=== PATIENT | male | born 1945 | race Caucasian/White ===

== ENCOUNTER → 2019-12-29 | Outpatient (CLI) | payer OTHER | LOC: SJCVC 16:46 | PROVIDERS: ATTEND Internal Medicine | DX: Z01.818 Encounter for other preprocedural examination (principal); R55 Syncope and collapse; R94.31 Abnormal electrocardiogram [ECG] [EKG]; E78.5 Hyperlipidemia, unspecified; R42 Dizziness and giddiness; I44.0 Atrioventricular block, first degree; I21.29 ST elevation (STEMI) myocardial infarction involving other sites; I45.10 Unspecified right bundle-branch block ==

== ENCOUNTER → 2020-01-06 | Outpatient (CLI) | payer OTHER | LOC: SJCVC 06:58 → SJCVCIMAG 06:58 | PROVIDERS: ATTEND Internal Medicine | DX: I35.1 Nonrheumatic aortic (valve) insufficiency (principal); I44.0 Atrioventricular block, first degree; I45.10 Unspecified right bundle-branch block; Z79.899 Other long term (current) drug therapy; Z87.891 Personal history of nicotine dependence ==

== ENCOUNTER → 2020-01-24 | Outpatient (CLI) | payer OTHER | LOC: SJCVC 11:00 | PROVIDERS: ATTEND Internal Medicine | DX: R42 Dizziness and giddiness (principal); R53.83 Other fatigue; M19.90 Unspecified osteoarthritis, unspecified site; Z87.891 Personal history of nicotine dependence; Z96.652 Presence of left artificial knee joint; Z79.82 Long term (current) use of aspirin; Z79.899 Other long term (current) drug therapy ==

== ENCOUNTER → 2020-04-19 | Outpatient (CLI) | payer OTHER | LOC: LAB 14:23 | PROVIDERS: ATTEND Internal Medicine | DX: Z01.812 Encounter for preprocedural laboratory examination (principal); Z20.828 Contact with and (suspected) exposure to other viral communicable diseases ==

== ENCOUNTER → 2020-04-24 | Outpatient (CLI) | payer OTHER ==
[~2020-04-24] MED LIST: ASA81BEC PO; BYSTOLIC10 MG PO; CITALOPRAM HBR40 MG PO; COZAAR 50 MG TA50 MG PO; FOLIC ACID1 MG PO; JANUVIA 50 MG T50 M1 PO; LANTUS100 UNIT/M SUBQ; LIPITOR40 MG PO; LOSARTAN POTAS100 MG PO; METFORMIN HCL500 M3 PO; POTASSIUM CHLO10 ME1 PO; PROTONIX 20 MG20 M1 PO; VITAMIN D21250 MC1 PO
--- NOTE | 2020-04-26 21:10 | SLE ---
[facility] [place] [address] POLYSOMNOGRAPHY STUDY Name: RENUKA SHARPE Room #: REG LUIS Ribeiro#: [id number] Admission: 04/24/20 Attend Phys: Esau Zuñiga MD Discharge: Date of : 47 Report #: [id number] THIS REPORT FOR: cc: Zander Matos MD, Scott R. MD Khan,Esau Mays MD ~ SLEEP STUDY ATTENDING PHYSICIAN: Dr. Bennie Thrasher. The patient is 74 years old who weighs 180 pounds with a BMI of 23. The patient's M[place] score was 1. The patient underwent sleep study performed at [facility]. This was a diagnostic study. During the night study, the patient spent 504 minutes in bed and slept for 259 minutes with a low sleep efficiency of 51%. Sleep latency was 30 minutes with a REM latency of 196 minutes. Sleep architecture showed increased stage 1 sleep, which was 47% of total sleep time, normal stage 2 sleep, absent N3 sleep and significantly reduced REM sleep, which was only 1.3% of total sleep time.EEG signal was poor and difficult to score stages. During the night of the study, the patient had 13 obstructive apneas and 1 central apnea and 29 hypopneas. The patient's AHI was 9.9 per hour. No significant AHI during REM sleep was observed due to very limited REM sleep. Supine AHI was 15 per hour. EKG monitoring revealed an average heart rate of 69 beats per minute. Occasional PVCs seen. PLMS were seen at an index of 63 per hour and 7 per hour caused EEG arousals. Nocturnal oximetry study revealed an average oxygen saturation of 92% with the lowest of 84%. 6.3 minutes were spent with oxygen saturation of less than 89%. Due to low AHI, the patient did not meet the split night criteria for CPAP initiation. IMPRESSION: 1. Mild obstructive sleep apnea at an AHI of 9.9 per hour. Supine AHI was 15.1 per hour. Significantly reduced REM sleep can underestimate the severity of sleep apnea. 2. Mild nocturnal hypoxia secondary to obstructive sleep apnea. 3. Severe PLMS at an index of 63 per hour and 7 per hour caused EEG arousals. 4. Reduce sleep efficiency resulting from sleep maintenance insomnia. RECOMMENDATIONS: [address] [address] POLYSOMNOGRAPHY STUDY Name: RENUKA SHARPE Tiffanie [id number] Admission: 04/24/20 Attend Phys: Esau Zuñiga MD Discharge: Date of : 47 Report #: [id number] 1. The patient did not meet the split night criteria for CPAP initiation due to low AHI. If the patient is clinically symptomatic or has comorbid conditions, then consider treatment of sleep apnea with either CPAP versus oral appliance. 2. Once the patient is optimally treated, then follow up in 4-6 weeks to assess compliance with treatment and to document clinical improvement. 3. Avoid DIRECTOR OF BANDS depressants. 4. Cautioned regarding driving until symptoms of sleep apnea resolve with above recommendation. 5. PLMS can be treated with dopaminergic agonist agents if the patient is clinically symptomatic. The patient should also be further evaluated for symptoms of restless legs during the day. 6. The patient's sleep efficiency was only 51% from sleep maintenance insomnia. If the patient has chronic insomnia, then it can be further evaluated and treated according to the etiology. <ELECTRONICALLY SIGNED> By: Esau Zuñiga MD 04/26/202109 19 30 Esau Zuñiga MD /nt
== END ==
LOC: SLEEPLAB
PROVIDERS: ATTEND Internal Medicine Critical Care Medicine
DX: G47.33 Obstructive sleep apnea (adult) (pediatric) (principal); G47.34 Idiopathic sleep related nonobstructive alveolar hypoventilation; G47.61 Periodic limb movement disorder; Z68.22 Body mass index [BMI] 22.0-22.9, adult

== ENCOUNTER 2020-05-05 13:23 | Inpatient (IN) | payer OTHER ==
[~2020-05-05] VITALS: Ht 188 cm; Wt 127.9 kg
[2020-05-05] VITALS (13 sets, daily range): BP systolic 105–169; BP diastolic 48–105
--- NOTE | ~2020-05-05 | EMS ---
[address] [address] EMS Patient Care Report Name: RENUKA SHARPE Room #: 170-10 ADM IN M.R.#: [id number] Admission: 05/05/20 Attend Phys: Skyler Kendrick MD Discharge: Date of : 47 Report #: [id number] THIS REPORT FOR: //name// Report Transmitted: 05/05/2020 15:38 EMS Care Summary [facility] MED-ACT Incident [id number] @ 05/05/2020 12:34 Incident Location [address] [place] [address] Patient RENUKA SHARPE Male, 74 Years 1945 Patient Address [address] [place] [address] Patient History Hypertension (HTN),Type 2 Diabetes, Patient Allergies No known allergies, Patient Medications Bystolic, Losartan, Citalopram, Metformin, Potassium, Chief Complaint He had 2 syncopal episodes Disposition Transported No Lights/[place] Reason Unconscious/Fainting Transported To [facility] Narrative [id number] arrives on scene to find E45 with pt contact. Pt and his fianc??? state pt has had 2 syncopal episodes today. They deny any trauma with them. Pt states he was a little dizzy right before the episodes but now feels completely fine and normal. Pt denies any complaints throughout entire EMS contact. Pt states [address] [address] EMS Patient Care Report Name: RENUKA SHARPE Room #: 170-10 ADM IN ..#: [id number] Admission: 05/05/20 Attend Phys: Skyler Kendrick MD Discharge: Date of : 47 Report #: [id number] before the syncopal episodes he had been feeling normal as well. Pt denies any episodes like this before. Pt denies any recent illness. Pt noted to be in 2nd degree type 2 block while on scene, he converted to a junctional rhythm in the 80s throughout most of the transport and then just before arrival at the ED is noted to go back into the 2nd degree block. Pt denies feeling any different throughout any of the rhythm changes. Pt denies any CP or SOB. Pt noted to be A&O and in no distress throughout contact and chats casually with EMS during transport. Report to RN and in room 10 and pt moved via sheet drag to ED bed. Initial Vitals @12:44P: 45,R: 16,BP: 157/67,Pain: 0/10,GCS: 15,Glucose: -2,SpO2: 97,Revised Trauma: 12, @12:49P: 61,R: 16,Pain: 0/10,SpO2: 95, @PTAP: 49,SpO2: 97, @12:57P: 43,R: 16,SpO2: 95, @13:13P: 49,R: 16,BP: 150/70,Pain: 0/10,SpO2: 94, @13:00P: 85,R: 16,Pain: 0/10,SpO2: 94, @13:21P: 32,R: 16,Pain: 0/10,GCS: 15,SpO2: 95, @12:59P: 62,R: 16,BP: 172/88,Temp: 98.5F,SpO2: 95, Assessments @12:47MENTAL:Person Oriented,Time Oriented,Place Oriented,Event Oriented,SKIN:No Abnormalities,HEENT:Head/Face: No Abnormalities,Eyes: No Abnormalities,Neck/Airway: No Abnormalities,LUNG SOUNDS:General: No Abnormalities,Left Upper: No Abnormalities,Right Upper: No Abnormalities,Left Lower: No Abnormalities,Right Lower: No Abnormalities,ABDOMEN:General: No Abnormalities,Left Upper: No Abnormalities,Right Upper: No Abnormalities,Left Lower: No Abnormalities,Right Lower: No Abnormalities,PELVIS//GI:No Abnormalities,EXTREMITIES:Left Arm: No Abnormalities,Right Arm: No Abnormalities,Left Leg: No Abnormalities,Right Leg: No Abnormalities,PULSE:NEURO:No Abnormalities, Impression Cardiac arrhythmia/dysrhythmia Procedures @12:4912-Lead ECGResponse: UnchangedSucceeded@13:0012-Lead ECGResponse: UnchangedSucceeded@13:1512-Lead ECGResponse: UnchangedSucceeded@13:08Saline Lock cc (20 ga) Site: Hand-RightResponse: UnchangedFailed Timeline 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 Kendrick, MD Discharge: Date of : 47 Report #: [id number] 12:34,En Route 12:44,On Scene 12:44,At Patient 12:44,BP: 157/67 M,PULSE: 45,RR: 16 R,SPO2: 97 Ox,ETCO2: ,BG: -2,PAIN: 0,GCS: 15, 12:49,12-Lead ECG,Response: UnchangedSucceeded, 12:49,BP: / M,PULSE: 61,RR: 16 R,SPO2: 95 Ox,ETCO2: ,BG: ,PAIN: 0,GCS: , 12:57,BP: / M,PULSE: 43,RR: 16 R,SPO2: 95 Ox,ETCO2: ,BG: ,PAIN: ,GCS: , 12:59,BP: 172/88 M,PULSE: 62,RR: 16 R,SPO2: 95 Ox,ETCO2: ,BG: ,PAIN: ,GCS: , 12:59,Depart Scene 13:00,12-Lead ECG,Response: UnchangedSucceeded, 13:00,BP: / M,PULSE: 85,RR: 16 R,SPO2: 94 Ox,ETCO2: ,BG: ,PAIN: 0,GCS: , 13:08,Saline Lock cc 20 ga Site: Hand-Right,Response: UnchangedFailed, 13:13,BP: 150/70 M,PULSE: 49,RR: 16 R,SPO2: 94 Ox,ETCO2: ,BG: ,PAIN: 0,GCS: , 13:15,12-Lead ECG,Response: UnchangedSucceeded, 13:16,At Destination 13:21,BP: / M,PULSE: 32,RR: 16 R,SPO2: 95 Ox,ETCO2: ,BG: ,PAIN: 0,GCS: 15, 13:37,Call Closed Disclaimer v1.1 Copyright 2020 [email or web address] This EMS Care Summary contains data elements from the applicable legal record (which may be displayed differently). It is designed to provide pertinent information for the following purposes: continuity of care, clinical quality, and state data reporting. The complete legal record is available to ED staff and administrators of the receiving hospital in [facility]'s Patient Tracker. All data is provided "as is."
[2020-05-05] MEDS ORDERED: POTASSIUM CHLO10 ME1 PO ×2 (13:45)
[2020-05-05] MEDS ORDERED: CITALOPRAM HBR40 MG PO ×2 (13:45)
[2020-05-05] MEDS ORDERED: BYSTOLIC10 MG PO ×2 (13:45)
[2020-05-05] MEDS ORDERED: ASA81BEC PO ×2 (13:46)
[2020-05-05] MEDS ORDERED: METFORMIN HCL500 M3 PO ×2 (13:46)
[2020-05-05] MEDS ORDERED: LOSARTAN POTAS100 MG PO ×2 (13:46)
[2020-05-05 13:52] LABS: ABSOLUTE NEUTROPHILS 6.5 thou/uL (1.4-8.2); BASOPHILS 0.5 % (0.0-2.0); EOSINOPHILS 1.2 % (0.0-3.0); HEMATOCRIT 42.6 % (42.0-52.0); HEMOGLOBIN 14.4 gm/dL (14.0-18.0); LYMPHOCYTES 6.3 % (24.0-44.0); MCH 36.7 pg (26.0-34.0); MCHC 33.7 g/dL (28.0-37.0); MCV 108.8 fL (80.0-100.0); MONOCYTES 13.8 % (1.0-8.0); PLATELET COUNT 166 thou/uL (150-400); POLYS 78.2 % (36.0-66.0); RBC 3.92 mil/uL (4.50-6.00); RDW 13.6 % (10.5-14.5); WBC 8.4 thou/uL (4.0-11.0)
[2020-05-05 14:11] LABS: ALBUMIN 3.5 g/dL (3.4-5.0); BUN 39 mg/dL (7-18); CALCIUM 9.6 mg/dL (8.5-10.1); CHLORIDE 85 mmol/L (98-107); CO2 21 mmol/L (21-32); CREATININE 1.8 mg/dL (0.7-1.3); DIRECT BILIRUBIN 0.3 mg/dL (<0.1-0.2); SGOT 106 U/L (15-37); SGPT 85 U/L (16-63); TOTAL BILIRUBIN 0.9 mg/dL (0.2-1.0); TOTAL PROTEIN 8.2 g/dL (6.4-8.2); TROPONIN-I <0.06 ng/mL (<0.06)
[2020-05-05 14:14] LABS: ANION GAP 13 mmol/L (7-16)
[2020-05-05 14:16] LABS: SODIUM 119 mmol/L (136-145)
[2020-05-05 14:17] LABS: POTASSIUM 6.4 mmol/L (3.5-5.1)
[2020-05-05 14:43] LABS: BE(vivo) -2.9 mmol/L (-2 to +3); HCO3 20.6 mmol/L (22.0-26.0); PCO2 32.7 mmHg (35.0-45.0); PO2 69.2 mmHg (80.0-100.0); pH 7.417 (7.360-7.450); sO2 94.3 % (92.0-98.0)
[2020-05-05 14:47] LABS: URINE BILIRUBIN NEGATIVE (Negative); URINE BLOOD TRACE (Negative); URINE CLARITY CLEAR; URINE COLOR YELLOW; URINE GLUCOSE-RANDOM* 3+ (Negative); URINE KETONES NEGATIVE (Negative); URINE LEUKOCYTES-REFLEX NEGATIVE (Negative); URINE NITRITE-REFLEX NEGATIVE (Negative); URINE PROTEIN (DIPSTICK) NEGATIVE (Negative); URINE SPECIFIC GRAVITY <= 1.005 (1.005-1.035); URINE UROBILINOGEN 0.2 E.U./dl (0.2-1.0)
[2020-05-05 14:47] LABS: GLUCOSE 940 mg/dL (74-106)
[2020-05-05 15:04] LABS: ANISOCYTOSIS 1+
[2020-05-05 16:40] LABS: FOLIC ACID 3.6 ng/mL (8.6-58.9)
--- NOTE | 2020-05-05 17:37 | NUR ---
74 y/o male presenting to the ED c/o syncope. The last thing he recalls is sitting down and talking with his fianc . Patient reports not taking his Metformin this morning. He does not regularly check his BS. Per EMS, patient had a couple of syncopal episodes in the AM. The patient has been admitted to a hospitalist with a Cardiology consult for Status post bradycardia and HR at 31, near syncopal episode, DKA, Critical Hyperkalemia (K+ 6.90, ARF, HTN, Elevated LFT's, Sleep apnea, Chronic BLEW edema, triple A followed by Cardiology, hx of remote tobacco use, daily etoh use, OA, and Obesity. Last COVID testing was pre-op test on 04-19-2020 for a sleep study and PCR was negative at that time. Patient is listed at A&O x4 and lists S/O/jie Pelletier at [phone] as next of kin and notification green party. CM will continue to follow for discharge needs.
[2020-05-05 18:23] LABS: MAGNESIUM 2.1 mg/dL (1.8-2.4); PHOSPHORUS 3.9 mg/dL (2.6-4.7)
[2020-05-05 18:27] LABS: CALCIUM 9.7 mg/dL (8.5-10.1); CREATININE 1.7 mg/dL (0.7-1.3); PHOSPHORUS 3.8 mg/dL (2.6-4.7)
[2020-05-05 18:34] LABS: POTASSIUM 4.9 mmol/L (3.5-5.1)
--- NOTE | 2020-05-05 19:27 | NUR ---
PT CAME FROM THE ER AT 1730 ACCOMPANIED BY [facility] STAFF. PT IS ALERT AND ORIENTED x4. PT IS ON INSULIN GTT AT 8 UNITS AT ARRIVAL. PT INSULIN GTT WAS INCREASED TO 12 UNITS LAST BG WAS 940. BEDSIDE POC BLOOD GLUCOSE READING HIGH. STAT LAB BLOOD GLUCOSE ORDERED. PT HAD RECEIVED 2L NS BOLUS. PT STARTED ON NS INFUSION AFTER BOLUS. ARAIZA WAS PLACED. ALL CONSULTS WERE CALLED. PT FAMILY WAS INFORMED BY PT HIMSELF. CONTINUE TO MONITOR.
[2020-05-05 23:00] LABS: ALBUMIN 3.2 g/dL (3.4-5.0); CALCIUM 10.3 mg/dL (8.5-10.1); CREATININE 1.4 mg/dL (0.7-1.3); PHOSPHORUS 3.2 mg/dL (2.6-4.7); POTASSIUM 4.1 mmol/L (3.5-5.1); TROPONIN-I 0.09 ng/mL (<0.06)
[2020-05-06] VITALS (20 sets, daily range): BP systolic 129–167; BP diastolic 61–89
[2020-05-06 02:40] LABS: ABSOLUTE NEUTROPHILS 5.1 thou/uL (1.4-8.2); BASOPHILS 0.4 % (0.0-2.0); EOSINOPHILS 2.4 % (0.0-3.0); HEMATOCRIT 40.6 % (42.0-52.0); HEMOGLOBIN 13.6 gm/dL (14.0-18.0); LYMPHOCYTES 13.2 % (24.0-44.0); MCH 35.9 pg (26.0-34.0); MCHC 33.4 g/dL (28.0-37.0); MCV 107.5 fL (80.0-100.0); MONOCYTES 13.8 % (1.0-8.0); PLATELET COUNT 144 thou/uL (150-400); POLYS 70.2 % (36.0-66.0); RBC 3.78 mil/uL (4.50-6.00); RDW 13.4 % (10.5-14.5); WBC 7.3 thou/uL (4.0-11.0)
[2020-05-06 02:50] LABS: ANION GAP 12 mmol/L (7-16); BUN 31 mg/dL (7-18); CALCIUM 9.7 mg/dL (8.5-10.1); CHLORIDE 98 mmol/L (98-107); CHOLESTEROL 192 mg/dL (<200); CO2 24 mmol/L (21-32); CREATININE 1.3 mg/dL (0.7-1.3); GLUCOSE 145 mg/dL (74-106); HDL CHOLESTEROL 54 mg/dL (>40); LDL CHOLESTEROL 107 mg/dL (<100); MAGNESIUM 1.8 mg/dL (1.8-2.4); PHOSPHORUS 3.3 mg/dL (2.5-4.9); SODIUM 134 mmol/L (136-145); TC:HDL 3.6 Ratio (Not establshd); TRIGLYCERIDE 158 mg/dL (<150); VLDL 32 mg/dL (<40)
[2020-05-06 02:53] LABS: POTASSIUM 3.1 mmol/L (3.5-5.1); SERUM ASSESSMENT Clear
[2020-05-06 06:33] LABS: CALCIUM 9.3 mg/dL (8.5-10.1); CREATININE 1.2 mg/dL (0.7-1.3); MAGNESIUM 1.6 mg/dL (1.8-2.4); PHOSPHORUS 3.9 mg/dL (2.6-4.7); POTASSIUM 3.8 mmol/L (3.5-5.1)
--- NOTE | 2020-05-06 12:33 | EKG ---
[place] [address] [facility] [address] [address] ELECTROCARDIOGRAM REPORT Name: RENUKA SHARPE Room #: 239-P ADM IN M.R.#: [id number] Admission: 05/05/20 Attend Phys: Skyler Kendrick MD Discharge: Date of : 47 Report #: [id number] [facility] ED Test Date: 2020-05-05 Test Time: 13:30:42 Pat Name: RENUKA SHARPE Department: Room: 239 Gender: M Snipper: ALOK : 1945 Requested By: Madison Gonzáles Order Number: [id number] MD: Tyrell Barth Measurements Intervals [place] Rate: 29 P: 44 CO: 400 QRS: -65 QRSD: 166 T: -4 QT: 575 QTc: 400 Interpretive Statements Predominant 3:1 AV block IVCD, consider atypical RBBB LVH with IVCD and secondary repol abnrm Baseline wander in lead(s) II,III,aVL,aVF,V2,V4 No previous ECG available for comparison Electronically Signed On 05-06-2020 12:32:44 [facility]EARCH CENTER DIRECTOR by Tyrell Barth [email or web address] <ELECTRONICALLY SIGNED> By: Tyrell Barth MD, [facility] 05/06/20 1232 1330 1330 Tyrell Barth MD, [facility] /EPI
--- NOTE | 2020-05-06 19:53 | NUR ---
PT TRANSFER TO CCU ROOM 210. INSULIN GTT WAS DC'D BY DR RIVERA. ENDOCRINOLOGY CAME BY LATER AND DID NOT FEEL THAT THAT WAS APPROPRIATE. PT STARTED ON ADA DIET. ULTRA SOUND OF ABDOMEN WAS DONE. RESIDENCE MANAGER SAID THAT THE PT NEEDED TO BE NPO FOR 6 HOURS BEFORE PROCEDURE. I ASKED DR RIVERA AND HE SAID IT WAS FINE TO DO THE US WITHOUT BEING NPO. MAGNESIUM REPLACED PER [facility] POLICY. PTS GIRLFRIEND BROUGHT CPAP FROM HOME FOR PT. PT WAS UPDATED AND EDUCATED ON PT CONDITION AND POC. PT PROGRESSING TOWARDS POC.
--- NOTE | 2020-05-07 03:28 | NUR ---
ASSUMED CARE FROM OUTGOING RN @MIDNIGHT. PT A&OX4 RESTING IN BED. WEARS CPAP AT NIGHT. IV INTACT WITH FLUIDS INFUSING. FOLLEY INTACT. PT DENIES PAIN ON ASSESSEMENT. FALL PREC IN PLACE AND CALL LIGHT AT REACH WILL CONT WITH POC TILL EOS.
[2020-05-07 04:45] VITALS: BP 147/51
[2020-05-07 08:25] VITALS: BP 141/85
[2020-05-07] MEDS ORDERED: COZAAR 50 MG TA50 MG PO ×2 (10:53)
[2020-05-07] MEDS ORDERED: LIPITOR40 MG PO ×2 (10:53)
[2020-05-07] MEDS ORDERED: VITAMIN D21250 MC1 PO ×2 (10:54)
[2020-05-07] MEDS ORDERED: LANTUS100 UNIT/M SUBQ ×2 (10:54)
[2020-05-07] MEDS ORDERED: PROTONIX 20 MG20 M1 PO ×2 (10:54)
[2020-05-07] MEDS ORDERED: FOLIC ACID1 MG PO ×2 (10:54)
[2020-05-07] MEDS ORDERED: JANUVIA 50 MG T50 M1 PO ×2 (10:55)
[2020-05-07 11:30] VITALS: BP 148/88
[2020-05-07 11:59] VITALS: BP 148/88
--- NOTE | 2020-05-07 13:23 | HC ---
[facility] [place] [address] CONSULTATION Name: RENUKA SHARPE Room #: 210-P [facility].#: [id number] Admission: 05/05/20 Attend Phys: Skyler Kendrick MD Discharge: 05/07/20 Date of : 46 Report #: [id number] THIS REPORT FOR: cc: BRIANNE - Family physician unknown FAM - Family physician unknown Marisela Anderson MD ~ DATE OF SERVICE: 05/06/2020 ENDOCRINE CONSULTATION NOTE CONSULTING PHYSICIAN: Dr. Kendrick. REASON FOR CONSULTATION: Hyperosmolar hyperglycemic crisis, type 2 diabetes mellitus. HISTORY OF PRESENT ILLNESS: This is a 74-year-old male patient whose medical background is significant for multiple medical issues including those of hypertension, type 2 diabetes mellitus, aortic aneurysm, congestive heart failure. It appears that the patient's diagnosis of diabetes has been relatively recent and he is maintained on metformin monotherapy at home. However, he was unable to provide detailed blood glucose data. He did, however, note that his metformin dose has been reduced about a month ago and was unable to offer details into that dose reduction. He is not aware of diabetic complications to date. The patient was admitted yesterday following an episode of lightheadedness, near syncope, shortness of breath and was brought in by EMS. On arrival, the patient was found to have a significant metabolic abnormalities including severe hyperglycemia with the blood glucose of 940 mg/dL, but without acidosis. Subsequently, the patient was started on IV insulin therapy and admitted to the ICU for further care and monitoring. Initially, the patient needed about 25 units of insulin per hour and about 12 hours into his stay, this has declined to 10 units per hour. As I arrived to take this consultation, I was told by the ICU nursing staff that the primary hospitalist team had discontinued IV insulin close to 2 hours ago and gave the patient Lantus insulin 30 units at that time. The patient's most recent blood glucose prior to this dictation 2 hours after IV insulin stoppage is 226 mg/dL. REVIEW OF SYSTEMS: Obtained. The nursing staff will interview the patient for me as I did not have immediate access to PPE. CONSTITUTIONAL: Fatigue, tiredness, but no fever or chills or body weight changes. [address] [address] CONSULTATION Name: RENUKA SHARPE Room #: 210-P [facility] IN M.R.#: [id number] Admission: 05/05/20 Attend Phys: Skyler Kendrick MD Discharge: 05/07/20 Date of : 47 Report #: [id number] HEENT: Negative for sore throat, sinus pain or ear drainage. PULMONARY: Shortness of breath and intermittent cough, but not hemoptysis. CARDIAC: Dyspnea on exertion, lower extremity edema, presyncope, but not chest pain. GASTROINTESTINAL: Slight abdominal discomfort, nausea, but no vomiting. NEUROLOGY: Lightheadedness, presyncope, but not seizure activity. Otherwise, review of systems noncontributory unless mentioned in HPI. PAST MEDICAL HISTORY: Hypertension, type 2 diabetes mellitus, congestive heart failure, active alcohol use, abdominal aortic aneurysm, anxiety, history of cataract, osteoarthritis. OUTPATIENT MEDICATIONS: Include citalopram 40 mg daily, Bystolic 10 mg daily, KCl 10 mEq daily, losartan 100 mg daily, metformin daily, enteric-coated aspirin 81 mg daily. ALLERGIES: No known drug allergies. FAMILY HISTORY: Noncontributory. SOCIAL HISTORY: The patient is an ex-smoker, apparently of 2 packs per day for 25 years, but had quit a few years ago. The patient has daily alcohol, estimated 4 glasses of bourbon daily. PHYSICAL EXAMINATION: Again, due to the lack of immediate access to PPE and that the patient has not been formally rule out for COVID-19, I have not entered his ICU room, but I have inspected him through the glass window as well as the glass door and utilized the present nursing staff to rely some of the ovalles findings to me. His vital signs were reviewed at length as well as his flow charts and other pertinent clinical information. VITAL SIGNS: Blood pressure is 129/69 mmHg, heart rate is 69 beats per minute, respirations 21 per minute, temperature 36.7 degrees Celsius. CONSTITUTIONAL: He appeared somewhat lethargic. He was sitting upright in bed, not in apparent pain or distress, wearing a mask. HEENT: Wearing a facemask. No facial droop. Extraocular motion seems intact. NEUROLOGIC: Awake, alert, responsive to gestures, follows orders, easily moves all limbs spontaneously. PSYCHIATRIC: Seems to be a normal mood and affect and cooperative with interview and instructions. EXTREMITIES: Lower extremity exam seems to have +2 ankle edema bilaterally with signs of stasis dermatitis. LABORATORY DATA: Again, on arrival, the patient had blood glucose of 960 mg/dL. This has dropped consistently under 200 mg/dL and then under 160 mg/dL over the past 8 hours, the most recent was 226 mg/dL. This is 2 hours after IV insulin [facility] [address] [place] [address] CONSULTATION Name: RENUKA SHARPE Room #: 210-P [facility] IN [facility]#: [id number] Admission: 05/05/20 Attend Phys: Skyler Kendrick MD Discharge: 05/07/20 Date of : 47 Report #: [id number] stoppage. Sodium 136, potassium 3.8, chloride 99, CO2 of 28, anion gap 9, at its peak, it was 13; BUN 29, creatinine 1.2 on arrival was 1.8. AST 106, total bilirubin 0.9, direct bilirubin 0.3, calcium 9.3, phosphorus 3.9, magnesium 1.6, alkaline phosphatase 326, ALT 85, total protein 8.2, albumin 3.0. EGFR 59. Lactic acid 1.7. Troponin 0.09. Total cholesterol 192, triglycerides 150, HDL 54, LDL 107. BNP 491. White blood count 7.3, hemoglobin 13.6, hematocrit 40.6, platelets 144. TSH 1.678. Hemoglobin A1c is 12.0. COVID-19 so far one negative test. Vitamin D is very low at 9.6. ASSESSMENT AND PLAN: 1. Hyperosmolar hyperglycemic crisis. The patient's presentation is consistent with HHS judging by his severe hyperglycemia apparent fluid deficit, but in the absence of an anion gap or acidity. The patient certainly needs support with aggressive insulin management as well as fluid resuscitation. He seems to have done well since arrival with the management noted above. Again, the patient was taken off IV insulin about 2 hours ago, which I believe was a bit thrush. However, since the conversion has already taken place and the patient was started on Lantus 30 units daily. I will increase his meal coverage insulin to 10 units per meal as well as provide coverage with moderate Humalog supplemental scale. Blood glucose monitoring will continue every 4-6 hours. Going forward, if the patient requests quickly to severe hyperglycemia, I would have a low threshold to resume IV insulin therapy. 2. Type 2 diabetes mellitus. Relatively new diagnosis treated on low dose metformin monotherapy. This has clearly been inadequate in addressing his therapeutic needs judging by his presentation with HHS as well as his hemoglobin A1c of 12%. Going forward, I believe that the patient's therapeutic needs will need to be significantly re-engineered. Almost certainly, the patient will at least initially need to be placed on insulin at the very least in the form of daily basal coverage in addition to a more aggressive oral therapy. His kidney functions are to be taken into account when advising such changes. 3. Vitamin D deficiency. This is severe. I will start the patient on high dose vitamin D therapy. I certainly appreciate this consultation by Dr. Kendrick. <ELECTRONICALLY SIGNED> By: Marisela Anderson MD 05/07/20 1323 1208 1459 Marisela Anderson MD /nt
== END 2020-05-07 13:03 | disposition home or self-care (01) | DRG 637 ==
LOC: ER 13:23 → EROBS 15:31 → ICU 17:06 → 2N 05-06 18:49
PROVIDERS: Emergency Medicine; Nurse Practitioner; ADMIT Hospitalist; ATTEND Hospitalist
DX: E11.10 Type 2 diabetes mellitus with ketoacidosis without coma (principal); N17.0 Acute kidney failure with tubular necrosis; G93.41 Metabolic encephalopathy; N17.9 Acute kidney failure, unspecified; E87.0 Hyperosmolality and hypernatremia; I95.1 Orthostatic hypotension; R00.1 Bradycardia, unspecified; E87.5 Hyperkalemia; M19.90 Unspecified osteoarthritis, unspecified site; I50.9 Heart failure, unspecified; I71.4 Abdominal aortic aneurysm, without rupture; I11.0 Hypertensive heart disease with heart failure; F41.9 Anxiety disorder, unspecified; E55.9 Vitamin D deficiency, unspecified; I45.9 Conduction disorder, unspecified; Z20.822 Contact with and (suspected) exposure to COVID-19; Z79.84 Long term (current) use of oral hypoglycemic drugs; Z79.899 Other long term (current) drug therapy; Z98.42 Cataract extraction status, left eye; Z98.41 Cataract extraction status, right eye; Z87.891 Personal history of nicotine dependence; Z28.89 Immunization not carried out for other reason
CPT/HCPCS: 10078; 10081

== ENCOUNTER → 2020-05-18 | Outpatient (CLI) | payer OTHER | LOC: SJCVC 16:15 | PROVIDERS: ATTEND Internal Medicine | DX: I10 Essential (primary) hypertension (principal); R42 Dizziness and giddiness; M19.90 Unspecified osteoarthritis, unspecified site; G47.33 Obstructive sleep apnea (adult) (pediatric); Z96.652 Presence of left artificial knee joint; Z79.82 Long term (current) use of aspirin; Z79.899 Other long term (current) drug therapy; Z87.891 Personal history of nicotine dependence ==